=== PATIENT | male | born 1995 | race Caucasian/White ===

== ENCOUNTER 2019-01-14 17:59 | Emergency (ER) | payer OTHER | END 2019-01-14 20:37 | disposition home or self-care (01) | LOC: E/R 20:37 | DX: M54.2 Cervicalgia (principal); M79.641 Pain in right hand | CPT/HCPCS: 29125; 72040; 73130-RT; 99284-25 ==

== ENCOUNTER 2019-01-21 17:33 | Emergency (ER) | payer OTHER | END 2019-01-21 20:14 | disposition home or self-care (01) | LOC: FTE 17:33 | DX: K12.0 Recurrent oral aphthae (principal) | CPT/HCPCS: 99282; Z7502 ==